=== PATIENT | male | born 1990 | race Caucasian/White ===

== ENCOUNTER 2017-06-04 19:54 | Emergency (ER) | payer OTHER ==
[2017-06-04 20:16] VITALS: BP 151/76
--- NOTE | 2017-06-04 20:54 | ED ---
Upper Extremity Pain - HPI Summary HPI Summary: 26 male presents to ED with complaints of right wrist pain, injury and deformity after falling FOOSH off of his skateboard. Admits to swelling and deformity. Patient states any movement of wrist or hand/fingers causes significant pain, however is able if needed to. Patient denies numbness/ tingling. Denies hitting his head or any other injury. Is right handed. Patient denies any other PMHx. No other complaints at this time. Is right hand dominant. - History of Current Complaint Chief Complaint: EDExtremityUpper Stated Complaint: POSS BROKEN RIGHT ARM Time Seen by Provider: 06/04/17 20:34 Hx Obtained From: Patient Mechanism Of Injury: Fall From A Standing Position, Twisted Onset/Duration: Started Hours Ago - 2, Traumatic, Still Present Timing: Constant Severity Initially: Severe Severity Currently: Severe Pain Location: Forearm - R, Wrist - R Character: Sharp, Aching Aggravating Factor(s): Movement Alleviating Factor(s): Nothing, Rest Associated Signs & Symptoms: Positive: Swelling - obvious deformity Related History: Dominant Hand Right - Allergies/Home Medications Allergies/Adverse Reactions: Allergies Allergy/AdvReac Type Severity Reaction Status Date / Time No Known Allergies Allergy Verified 06/04/17 20:11 PMH/Surg Hx/FS Hx/Imm Hx Endocrine/Hematology History: Denies: Hx Diabetes Cardiovascular History: Denies: Hx Hypertension Respiratory History: Denies: Hx Asthma - Surgical History Surgery Procedure, Year, and Place: n/a - Immunization History Immunizations Up to Date: Yes Infectious Disease History: Yes Infectious Disease History: Denies: Traveled Outside the [place] in Last 30 Days - Family History Known Family History: Positive: None - Social History Alcohol Use: Occasionally Substance Use Type: Reports: None Smoking Status (MU): Never Smoked Tobacco Review of Systems Constitutional: Negative Cardiovascular: Negative Respiratory: Negative Positive: Arthralgia, Myalgia, Decreased ROM, Edema - right wrist Skin: Negative Neurological: Negative All Other Systems Reviewed And Are Negative: Yes Physical Exam Triage Information Reviewed: Yes Vital Signs On Initial Exam: Initial Vitals Temp Pulse Resp BP Pulse Ox 98.7 F 116 20 151/76 100 06/04/17 20:11 06/04/17 20:11 06/04/17 20:11 06/04/17 20:11 06/04/17 20:11 Vital Signs Reviewed: Yes Appearance: Positive: Well-Appearing, Well-Nourished, Pain Distress - moderate Skin: Positive: Warm, Skin Color Reflects Adequate Perfusion, Dry, Other - no ecchymosis. obvious deformity to right wrist, right distal forearm, dinner fork deformity. Negative: Cold, Numb, Cyanosis @, Pale, Erythema @ Head/Face: Positive: Normal Head/Face Inspection Eyes: Positive: Conjunctiva Clear ENT: Positive: Hearing grossly normal Neck: Positive: Supple, Nontender Respiratory/Lung Sounds: Positive: Clear to Auscultation, Breath Sounds Present. Negative: Rales, Rhonchi, Wheezes Cardiovascular: Positive: Normal, RRR, Pulses are Symmetrical in both Upper and Lower Extremities - 2+ strong, equal, radial b/l. Negative: Murmur, Rub Bowel Sounds: Positive: Present Musculoskeletal: Positive: Limited @ - right wrist/ hands due to pain and injury , Pain @ - right wrist and forearm, with some radiation into proximal forearm, Edema Right - and obvious deformity, crepitus, step off, of right wrist, distal forearm Neurological: Positive: Normal, Sensory/Motor Intact - intact, Alert, Oriented to Person Place, Time, NV Bundle Intact Distally, Normal Gait Procedures - Splinting Location: right forearm by Dr Wolf Hand-Made Type: plaster Splint: sugar-tong Pre-Proc Neuro Vasc Exam: normal Post-Proc Neuro Vasc Exam: normal - Joint Reduction Joint Reduction Site: wrist (R) Conscious Sedation: No Reduction Attempts: 1 - by Dr Wolf Pre-Procedure NV Exam: Yes Post Joint Reduction Film: joint reduced Diagnostics - Vital Signs Vital Signs Temp Pulse Resp BP Pulse Ox 06/04/17 20:11 98.7 F 116 20 151/76 100 - Laboratory Result Diagrams: 06/04/17 20:55 06/04/17 20:55 Lab Statement: Any lab studies that have been ordered have been reviewed, and results considered in the medical decision making process. - Radiology right hand/wrist Xray Interpretation: Positive (See Comments) - COMMINUTED DORSALLY ANGULATED FRACTURE OF THE DISTAL RADIAL METAPHYSIS. THERE IS A DISPLACED FRACTURE OF THE STYLOID PROCESS OF THE ULNA. Radiology Interpretation Completed By: Radiologist right forearm Xray Interpretation: Positive (See Comments) - COMMINUTED DORSALLY ANGULATED FRACTURE OF THE DISTAL RADIAL METAPHYSIS. THERE IS A DISPLACED FRACTURE OF THE STYLOID PROCESS OF THE ULNA. Radiology Interpretation Completed By: Radiologist right forearm, post reduction Xray Interpretation: Positive (See Comments) - fracture wrist/distal ulna, reduced Radiology Interpretation Completed By: ED Physician - Dr Wolf Re-Evaluation - Re-Evaluation First Eval Re-Evaluation Time: 10:10 Change: Improved - had some relief from medication Course/Dx - Course Course Of Treatment: xray obtained, labs obtained. given pain management. labs unremarkable, elevated WBC and lactic however patient under stress/pain, x-ray showed right wrist and distal ulna fracture. CMS intact. Spoke with Dr Wolf at 9:30pm who reduced/splinted. See Dr Wolf note on splinting/reduction of fractured forearm/wrist. Patient tolerated procedure well. Post reduction film obtained. Continue pain meds, follow up. Aware of worsening signs and symptoms. No concern of other emergent etiologies at this time. - Diagnoses Differential Diagnosis/HQI/PQRI: Positive: Contusion, Fracture (Closed), Strain , Sprain Provider Diagnoses: Fracture of right wrist, Fracture of ulna, right, closed - Physician Notifications Discussed Care of Patient With: Dr Wolf Time Discussed With Above Provider: 21:30 Instructed by Provider To: Will See In ED Discharge - Discharge Plan Condition: Improved Disposition: HOME Prescriptions: HYDROcodone/ACETAMIN 5-325 MG* [[place] 5-325 TAB*] 1 tab PO Q4H PRN #10 tab MDD 3 PRN Reason: Pain Patient Education Materials: Wrist Fracture in Adults (ED), Arm Fracture in Adults (ED) Referrals: [facility] [Primary Care Provider] - Seferino Wolf MD [Medical Doctor] - Additional Instructions: Take prescribed pain medication as needed for break through pain. Take ibuprofen every 6-8 hours, 600mg with food for pain and inflammation. Ice, rest, elevate. Do not remove splint or get wet. Follow up with Ortho, call tomorrow morning and make an appointment. If you develop new or worsening symptoms such as increased pain, numbness, blue colored skin, or you feel splint is too tight, please seek medical attention promptly.
[2017-06-04] MEDS ORDERED: Morphine INJ* 4 MG/ML 1 ML CARPUJECT IV ONE (21:05)
--- NOTE | 2017-06-04 21:14 | RAD ---
HISTORY: Right hand and wrist deformity, trauma COMPARISONS: None VIEWS: 6, Frontal and lateral views of the right hand, wrist, and forearm FINDINGS: BONE DENSITY: Normal. BONES: There is comminuted dorsally angulated fracture of the distal radial metaphysis. There is a displaced fracture of the styloid process of the ulna. JOINTS: There is no arthropathy. ALIGNMENT: There is no dislocation. SOFT TISSUES: Unremarkable. OTHER FINDINGS: None. IMPRESSION: COMMINUTED DORSALLY ANGULATED FRACTURE OF THE DISTAL RADIAL METAPHYSIS. THERE IS A DISPLACED FRACTURE OF THE STYLOID PROCESS OF THE ULNA.
[2017-06-04 21:28] LABS: Hematocrit 46 % (42-52); Hemoglobin 15.8 g/dl (14.0-18.0); Mean Corpuscular HGB Conc 35 g/dl (31-36); Mean Corpuscular Hemoglobin 30 pg (27-31); Mean Corpuscular Volume 86 fL (80-94); Mean Platelet Volume 8 um3 (7.4-10.4); Red Blood Count 5.35 10^6/ul (4.0-5.4); Red Cell Distribution Width 13 % (10.5-15); White Blood Count 17.6 10^3/ul (3.5-10.8)
[2017-06-04] MEDS ORDERED: HYDROmorphone INJ* 1 MG/ML CARPUJECT SYRINGE IV SLOW PU ONE ×2 (21:37→21:49)
[2017-06-04 21:44] LABS: BUN/Creatinine Ratio 13.9 (8-20); Calcium 9.7 mg/dL (8.6-10.3); EGFR African American 107.1 (>60); EGFR Non-African American 83.3 (>60); Globulin 2.7 g/dL (2-4); Potassium 4.1 mmol/L (3.5-5.0); Total Bilirubin 0.9 mg/dL (0.2-1.0); Total Protein 7.7 g/dL (6.4-8.9)
[2017-06-04] MEDS ORDERED: HYDROmorphone INJ* 1 MG/ML CARPUJECT SYRINGE ONE (21:52)
[2017-06-04] MEDS ORDERED: Ondansetron INJ* 2 MG/ML VIAL IV ONE (22:48)
--- NOTE | 2017-06-05 04:59 | CONS ---
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 He was admitted to the emergency room with a comminuted distal radius fracture, and I was called to perform a closed reduction. Flakito is a healthy fellow. He denies any medicines, allergies, or medical illness. He is from [place], [place]. PLAN/RECOMMENDATIONS: I gave him some 1% lidocaine into the skin and then some 2% lidocaine into the distal radius fracture as a hematoma block. He had intact sensation and a warm hand. With some gentle manipulation, I reduced his distal radius and splinted this with a sugar tong. X-rays are pending. He will follow up after discharge with our Hand Team at [facility]. [id number]/[facility] #: [id number] MTDD
--- NOTE | 2017-06-05 07:39 | RAD ---
HISTORY: Post reduction COMPARISONS: June 04, 2017 at 7:54 PM VIEWS: 3, Frontal, lateral, and oblique views of the right forearm FINDINGS: BONE DENSITY: Normal. BONES: Again noted is a comminuted fracture of the distal radial metaphysis with articular extension. There has been interval reduction of the angulation. Again noted is displaced fracture of the styloid process of the ulna JOINTS: There is no arthropathy. ALIGNMENT: There is no dislocation. SOFT TISSUES: Unremarkable. OTHER FINDINGS: None. IMPRESSION: INTERVAL REDUCTION OF THE ANGULATION OF THE DISTAL RADIAL METAPHYSEAL FRACTURE.
== END 2017-06-04 22:58 | disposition home or self-care (01) ==
LOC: ED 19:54
DX: S52.201A Unspecified fracture of shaft of right ulna, initial encounter for closed fracture (principal); S62.101A Fracture of unspecified carpal bone, right wrist, initial encounter for closed fracture; V00.131A Fall from skateboard, initial encounter; Y93.9 Activity, unspecified; Y92.9 Unspecified place or not applicable
CPT/HCPCS: 36415; 80053; 83605; 85025; 96374; 96375; 99284; J1170; J2270; J2405

== ENCOUNTER 2017-06-08 15:23 | Day surgery (SDC) | payer OTHER ==
[~2017-06-08 15:23] MED LIST: Buffered Lidocaine 0.9% SYRIN* 5 ML/SYR SYRINGE INTRADERM ONE; Buffered Lidocaine 0.9% SYRIN* 5 ML/SYR SYRINGE ONE; Sodium Citrate/Citric Acid* 15 ML UDC ONE; Sodium Citrate/Citric Acid* 15 ML UDC PO ONE; ceFAZolin 2 GM PREMIX (*) 50 ML IVPB ONE
[2017-06-08 16:20] LABS: Hematocrit 42 % (42-52); Hemoglobin 14.6 g/dl (14.0-18.0); Mean Corpuscular HGB Conc 35 g/dl (31-36); Mean Corpuscular Hemoglobin 30 pg (27-31); Mean Corpuscular Volume 86 fL (80-94); Mean Platelet Volume 8 um3 (7.4-10.4); Red Blood Count 4.87 10^6/ul (4.0-5.4); Red Cell Distribution Width 13 % (10.5-15); White Blood Count 5.6 10^3/ul (3.5-10.8)
[2017-06-08] MEDS ORDERED: fentaNYL* 50 MCG/ML 2 ML VIAL (100 MCG VIAL) ONE ×4 (19:03→21:52)
[2017-06-08] MEDS ORDERED: Lidocaine 2% PF * 5 ML VIAL ONE (19:04)
[2017-06-08] MEDS ORDERED: Propofol* 10 MG/ML 20 ML BTL IV PUSH ONE ×2 (19:04→20:48)
[2017-06-08] MEDS ORDERED: Dexamethasone IV* 4 MG/ML 1 ML (4 MG) ONE (19:04)
[2017-06-08] MEDS ORDERED: Bupivacaine 0.25% SDV* 30 ML ONE (19:31)
[2017-06-08] MEDS ORDERED: Ondansetron INJ* 2 MG/ML VIAL IV PRN (19:52)
[2017-06-08] MEDS ORDERED: Ketorolac INJ* 30 MG/ML 1 ML VIAL ONE (20:16)
[2017-06-08] MEDS: fentaNYL* 50 MCG/ML 2 ML VIAL (100 MCG VIAL) IV PRN ×4 (21:31→21:57)
[2017-06-08] MEDS ORDERED: HYDROcodone/ACETAMIN 5-325 MG* 1 TAB ONE ×2 (21:52→22:13)
[2017-06-08 22:20] VITALS: BP 160/93
--- NOTE | 2017-06-09 04:30 | OP ---
DATE OF OPERATION: 06/08/17 [facility] DATE OF : 89 SURGEON: Seferino Alberto MD CARTON FOLDER: JOSÉ MANUEL Coreas. An clinical research assistant was needed for the entirety of the procedure to aid in positioning of the arm, retraction, and instrumentation. ANESTHESIOLOGIST: Dr. Chung Gaytan ANESTHESIA: General. PRE-OP DIAGNOSIS: Right intraarticular, three-fragment distal radius fracture. POST-OP DIAGNOSIS: Right intraarticular, three-fragment distal radius fracture. OPERATIVE PROCEDURE: Open reduction internal fixation, right intraarticular, three- fragment, distal radius fracture. INDICATIONS: Flakito fell off [place]. He had a displaced distal radius fracture. There was a volar ulnar and dorsal ulnar fragments and a styloid fragment. We talked about risks and benefits. He wanted to proceed with surgery. FINDINGS: As expected. EBL: 15 mL. COMPLICATIONS: None. DESCRIPTION OF PROCEDURE: Flakito was seen in the preoperative holding area. The correct side, site, and procedure were identified. We came back to the operating room and the arm was prepped and draped in the usual fashion after a pre-scrub. A time-out was performed. The arm was exsanguinated with the Esmarch and the tourniquet inflated to 250 mmHg. I then made a longitudinal incision over the distal FCR tendon. Dissection was carried down. The sheath was released. The subsheath was released. A soft tissue plane was developed and the pronator quadratus was released off the radial margin of the distal radius and T'd back distally preserving the distal 2 or 3 mm of volar extrinsic ligaments. The volar surface of the distal radius was exposed. The fracture was identified. It was displaced. It was rotated and dorsally translated and angulated. I went ahead and placed a lobster claw on the proximal fragment and mobilized the distal fragment. I placed the arm in 10 pounds of traction. We closed reduced the fracture and I placed a transradial styloid pin. I then brought in my plate and I checked the 4 distal hole plate and that was too narrow, so I went ahead and switched out for the 5 distal hole plate. This was placed in such a way as to buttress the volar ulnar fragment and for the most ulnar screw to shoot back into the dorsal ulnar fragment. I went ahead and checked the plate position on the mini C-arm fluoroscopy. Once I had it ulnar enough, I went ahead and placed the oblong screw. I then moved the plate just a bit more proximal and pinned it in place. I then placed 1 cortical screw distally to get good plate to bone apposition. I then placed the remainder of the distal row of screws with locking screws and variable angle locking screw and the radial styloid screw. The cortical screw was then switched out for a locking screw. I then placed my 2 proximal screws with 2.4 mm cortical screws. This was all of the Synthes variable angle distal radius plate and screw set. Once I had all the screws in place, we got final fluoroscopic imaging and everything looked good, so I went ahead and irrigated out the wound. The pronator was reapproximated with 3-0 Vicryl suture. The subcutaneous tissue was reapproximated with 3-0 Vicryl suture. Skin was closed with 3-0 Monocryl suture and Steri-Strips. The operative area was infiltrated with 0.25% plain Marcaine. The wound was dressed with 4x4s, sterile Webril, and a cock- up wrist splint. Tourniquet was deflated. Hand pinked up immediately. He was then taken to recovery room in stable condition. [id number]/[facility] #: [id number] EDA
--- NOTE | 2017-06-09 08:33 | RAD ---
INDICATION: Right wrist fracture, trauma COMPARISONS: October 17, 2016 TECHNIQUE: Fluoroscopy was provided for a surgical procedure. Total fluoroscopy time is: 38.9 seconds FINDINGS: Spot images of the straight internal fixation of the distal radial fracture. Again noted is a mildly displaced fracture of the solid process of the ulna. IMPRESSION: FLUOROSCOPY WAS PROVIDED FOR A SURGICAL PROCEDURE CPT II Codes: 6045F
== END 2017-06-08 22:37 | disposition home or self-care (01) ==
LOC: OR 15:23
PROVIDERS: ATTEND Orthopaedic Surgery Hand Surgery
DX: S52.571A Other intraarticular fracture of lower end of right radius, initial encounter for closed fracture (principal); V00.131A Fall from skateboard, initial encounter; Y92.9 Unspecified place or not applicable; F17.200 Nicotine dependence, unspecified, uncomplicated
CPT/HCPCS: 36415; 85025; A9270-GY; C1713; C1776; J0690; J1100; J1885; J2704; J3010